=== PATIENT | female | born 1945 | race Caucasian/White ===

== ENCOUNTER 2018-05-10 15:04 | Emergency (ER) | payer OTHER, MEDICAID ==
[~2018-05-10] VITALS: Ht 157.5 cm; Wt 78.0 kg
[2018-05-10 15:29] VITALS: Ht 157.5 cm; Wt 78.0 kg
[2018-05-10 17:06] VITALS: BP 147/877
== END 2018-05-10 17:06 | disposition home or self-care (01) ==
LOC: ED 15:04
DX: J20.9 Acute bronchitis, unspecified (principal)
CPT/HCPCS: J7512

== ENCOUNTER 2018-07-14 14:18 | Emergency (ER) | payer OTHER, MEDICAID ==
[~2018-07-14] VITALS: Ht 154.9 cm; Wt 80.7 kg
[2018-07-14 14:23] VITALS: BP 107/63; Ht 154.9 cm; Wt 80.7 kg
== END 2018-07-14 16:10 | disposition home or self-care (01) ==
LOC: ED 14:18
DX: S20.212A Contusion of left front wall of thorax, initial encounter (principal); W01.0XXA Fall on same level from slipping, tripping and stumbling without subsequent striking against object, initial encounter; Y93.89 Activity, other specified; Y92.89 Other specified places as the place of occurrence of the external cause; Y99.8 Other external cause status

== ENCOUNTER 2018-07-22 10:19 | Emergency (ER) | payer OTHER, MEDICAID ==
[~2018-07-22] VITALS: Ht 165.1 cm; Wt 79.4 kg
[2018-07-22 10:35] VITALS: BP 133/78; Ht 165.1 cm; Wt 79.4 kg
== END 2018-07-22 11:24 | disposition home or self-care (01) ==
LOC: ED 10:19
DX: S20.212A Contusion of left front wall of thorax, initial encounter (principal); E03.9 Hypothyroidism, unspecified; Z98.890 Other specified postprocedural states; W01.0XXA Fall on same level from slipping, tripping and stumbling without subsequent striking against object, initial encounter; Y93.89 Activity, other specified; Y92.89 Other specified places as the place of occurrence of the external cause; Y99.8 Other external cause status

== ENCOUNTER 2018-10-22 16:17 | Emergency (ER) | payer OTHER, MEDICAID ==
[~2018-10-22] VITALS: Ht 160 cm; Wt 80.7 kg
[2018-10-22 16:22] VITALS: Ht 160 cm; Wt 80.7 kg
[2018-10-22 17:51] VITALS: BP 125/81
== END 2018-10-22 17:51 | disposition home or self-care (01) ==
LOC: ED 16:17
DX: S20.219A Contusion of unspecified front wall of thorax, initial encounter (principal); E03.9 Hypothyroidism, unspecified; Z98.890 Other specified postprocedural states; V43.92XA Unspecified car occupant injured in collision with other type car in traffic accident, initial encounter; Y93.I9 Activity, other involving external motion; Y92.413 State road as the place of occurrence of the external cause; Y99.8 Other external cause status